=== PATIENT | male | born 1985 ===

== ENCOUNTER 2024-05-07 01:02 | Emergency (ER) | payer SELFPAY ==
[~2024-05-07] VITALS: Ht 177.8 cm; Wt 72.7 kg
[2024-05-07 01:26] LABS: COVID AG,FIA SOURCE NASAL SWAB
[2024-05-07 01:29] VITALS: TEMP 98.3
[2024-05-07 01:59] LABS: SARS-COV2 (COVID) ANTIGEN,FIA Negative (Negative)
[2024-05-07] MEDS: ACETAMINOPHEN 500 MG TABLET PO ONE (03:25)
[2024-05-07 04:24] VITALS: BP 127/76; PULSE 92; RESP 15; O2SAT 97
== END 2024-05-07 04:47 | disposition home or self-care (01) ==
LOC: EMS 01:02
DX: S82.65XA Nondisplaced fracture of lateral malleolus of left fibula, initial encounter for closed fracture (principal); F10.129 Alcohol abuse with intoxication, unspecified; Z20.822 Contact with and (suspected) exposure to COVID-19; X58.XXXA Exposure to other specified factors, initial encounter; Y93.89 Activity, other specified; Y92.89 Other specified places as the place of occurrence of the external cause; Y99.8 Other external cause status; Y90.6 Blood alcohol level of 120-199 mg/100 ml
CPT/HCPCS: 29515; 99284; 73610-TC; Z7502; Z7610

== ENCOUNTER 2024-11-12 00:41 | Emergency (ER) | payer OTHER ==
[~2024-11-12] VITALS: Ht 167.6 cm; Wt 120.0 kg
[2024-11-12 00:49] VITALS: TEMP 98.2
[2024-11-12 00:56] VITALS: BP 95/70; PULSE 95; RESP 20; O2SAT 100
[2024-11-12] MEDS: ONDANSETRON HCL 4 MG/2 ML VIAL IM ONE (01:04)
== END 2024-11-12 01:19 ==
LOC: EMS 00:44
DX: S00.81XA Abrasion of other part of head, initial encounter (principal); F10.129 Alcohol abuse with intoxication, unspecified; Y90.9 Presence of alcohol in blood, level not specified; X58.XXXA Exposure to other specified factors, initial encounter; Y93.89 Activity, other specified; Y92.89 Other specified places as the place of occurrence of the external cause; Y99.8 Other external cause status
CPT/HCPCS: 99283; J2405